=== PATIENT | female | born 1945 | race Caucasian/White ===

== ENCOUNTER 2016-11-12 10:33 | Observation (INO) | payer BC ==
--- NOTE | ~2016-11-12 | DS ---
Discharge Summary [facility] [address] [place]. [address] NAME: SHAWNA REDDY : 49 STATUS : DIS Solo PAT#: [id number] AGE: 71 ADM/REG DATE : 11/12/16 MR#: [id number] REPORT SERV DATE: 11/15/16 DICTATED BY: JR. LEDEZMA WILLIAM JOHN DATE: 11/14/16 REPORT STATUS : Draft TRANSCRIBED BY: MARGE DATE: 11/14/16 ADMISSION DATE: 11/12/2016 DISCHARGE DATE: 11/14/2016 DISCHARGE DIAGNOSES: Include: 1. Left thalamic stroke with right-sided oral, arm, and leg numbness. 2. Small patent foramen ovale. 3. Hypertension. 4. Mild hyponatremia. OPERATIONS/PROCEDURES AND TREATMENTS: Include: 1. Echocardiogram done 11/2009, which was technically difficult study with normal left ventricular size and systolic function. Ejection fraction 54%. No regional wall motion abnormalities. Mild diastolic dysfunction. Normal right ventricular size and function. Borderline quality saline bubble study with small patent foramen ovale with a few bubbles crossing the septum with Valsalva, but not at rest. 2. CT of the brain done 11/12/2016, which showed no acute infarct or hemorrhage. There was mild atrophy with white matter gliosis. 3. MRA of the neck was normal. 4. MRA of the head was normal. 5. MRI of the brain showed nonacute, nonhemorrhagic infarct of left thalamic region near the cortical spinal tract complaining right-sided weakness. DISCHARGE MEDICATIONS: Include: 1. Prilosec 20 daily. 2. Valsartan/hydrochlorothiazide 160/25 daily. 3. Pazeo ophthalmic to both eyes as needed. 4. Lipitor 80 mg daily. 5. Aspirin 325 daily. 6. Calcium carbonate 600 daily. 7. Multivitamin daily. HOSPITAL COURSE: The patient is a 71-year-old female with past history of hypertension, presented to the emergency room on 11/12 with complaint of right-sided arm, leg, and perioral numbness beginning when she was doing her morning routine about 8 a.m. She does not have chest pain, palpitations, shortness of breath, incoordination, slurred speech, headache, vision changes, incoordination or weakness. This symptoms have since resolved. For details of her admission history, physical, and presenting data, please see Dr. Garcia's dictated history and physical. The patient was admitted to the Clinical Decision Unit where she underwent MRI of the brain, MRA of the neck and head, and echocardiogram. Significant findings include: 1. Left thalamic stroke. She was placed on aspirin 325 mg daily. She had no residual deficits. There was no functional weakness. No need for therapies. The echocardiogram did show small patent foramen ovale which I discussed with the Cardiology Service. We will place her on aspirin and defer to Outpatient Neurology for Discharge Summary [address] [address] NAME: SHAWNA REDDY : 49 STATUS : DIS Solo PAT#: [id number] AGE: 71 ADM/REG DATE : 11/12/16 MR#: [id number] REPORT SERV DATE: 11/15/16 DICTATED BY: JR. LEDEZMA WILLIAM JOHN DATE: 11/14/16 REPORT STATUS : Draft TRANSCRIBED BY: MARGE DATE: 11/14/16 followup. The remainder of the patient's health problems remained stable and were not addressed. For discharge exam and laboratory, please see daily progress note. DISCHARGE DIET: Regular. ACTIVITY: As tolerated. WDIALLO/MARGE Dimas Ledezma Jr, MD / [id number] CC: Daniel Marie II, MD
--- NOTE | ~2016-11-12 | HP ---
History And Physical [place] [id number] [facility] [place]. [address] NAME: SHAWNA REDDY : 49 STATUS : ADM Solo PAT#: [id number] AGE: 71 ADM/REG DATE : 11/12/16 MR#: [id number] REPORT SERV DATE: 11/12/16 DICTATED BY: KLAUDIA LUGO DATE: 11/12/16 REPORT STATUS : Draft TRANSCRIBED BY: MODL DATE: 11/12/16 DATE OF ADMISSION: 11/12/2016 CHIEF COMPLAINT: Right oral, arm, and leg numbness. HISTORY OF PRESENT ILLNESS: The patient is a 71-year-old female. She has a past medical history significant for hypertension. She presents today with an episode beginning this morning of right mouth, arm, and leg numbness. She states, she was doing her morning routine and stretches and light weights around 08:00 to 08:15 this morning. She had the onset of symptoms as noted above. She describes it as a numbness not as a weakness not as incoordination and not as pins and needle sensation. It seemed to be the same intensity on the leg, arm, and mouth. She did not have chest pain, palpitations, shortness of breath, incoordination, slurred speech, headache, change in her vision, incoordination, or weakness. When her symptoms persisted past 10 o'clock, she presented to the emergency department. They started decreasing about that time. She has had a couple of waxing and waning since her oral numbness, which surprisingly in her mouth and her lips, but the right lower extremity is completely resolved and the right upper extremity is nearly resolved, just some residual symptoms in her hand. She has never had similar symptoms before. She is otherwise without complaints. PAST MEDICAL HISTORY: In addition to above, she had a cardiac stress test, heart catheterization approximately four years ago by Dr. Tobin, which was negative. PAST SURGICAL HISTORY: She had a breast biopsy, which was negative. Then, she had a calcium deposit removed in the scar from breast. She had also a cataract surgery. CURRENT MEDICATIONS: Diovan/hydrochlorothiazide 160/25, Prilosec 20, Pazeo ophthalmic, Centrum, Os-Stephen plus D, aspirin 81. ALLERGIES: TO SULFA AND AMOXICILLIN. FAMILY HISTORY: Father from complications of Alzheimer's. Mother has hypertension, but is living. SOCIAL HISTORY: Fenl-fgag-igj-day smoker, averages approximately three beers per night. REVIEW OF SYSTEMS: HEENT: As covered in HPI. CARDIAC: No chest pain, palpitations. PULMONARY: No shortness of breath or hyperventilation. GI: No nausea, vomiting. : No dysuria, frequency, or urgency. NEUROMUSCULOSKELETAL: No weakness, incoordination. Otherwise, 10-point review of systems negative as noted above. History And Physical [address] [address] NAME: SHAWNA REDDY : 49 STATUS : ADM Solo PAT#: [id number] AGE: 71 ADM/REG DATE : 11/12/16 MR#: [id number] REPORT SERV DATE: 11/12/16 DICTATED BY: KLAUDIA LUGO DATE: 11/12/16 REPORT STATUS : Draft TRANSCRIBED BY: MARGE DATE: 11/12/16 PHYSICAL EXAMINATION: VITAL SIGNS: BP 183/80, temp 98, pulse 88, respirations 18, sat 99%. GENERAL: She is awake, alert, oriented, in no acute distress. HEENT: Normocephalic, atraumatic. Sclerae nonicteric. NECK: Supple. HEART: Regular rate and rhythm. No significant murmurs, gallops, or rubs. No carotid bruits noted. ABDOMEN: Nontender, nondistended. EXTREMITIES: No clubbing, cyanosis, or edema. NEUROLOGICAL: Alert, oriented. No obvious cranial nerve deficits. Speech is intact. Motor strength upper extremities show symmetric fire boss strength and coordination. Lower extremity shows normal sensation to gross touch. Normal motor exam. LABORATORY DATA: Sodium 134, potassium 3.7, chloride 95, CO2 of 30, BUN and creatinine are 9 and 0.52 with a glucose of 95. White count is 5.2, H and H are 14 and 8.4, glucose 212. CT shows no acute infarct or bleed, mild atrophy. EKG, sinus rhythm. ASSESSMENT: Transient ischemic attack. PLAN: 1. Lipid profile, A1c, TSH, B12, folate, MRI, MRA, echo. 2. We will allow labile hypertension. We will hold her Diovan, hydrochlorothiazide once her blood pressure gets markedly elevated. Further recommendations pending above. TLF/MODL Klaudia Lugo M.D. / [id number]
[~2016-11-12 10:33] MED LIST: ACTIVELLA1 TA1 PO; AMB10 PO; ASAB PO; DIOVAN HCT160 MG/25 PO; PRILOSEC OTC20 MG PO
[2016-11-12 11:03] LABS: BASOPHILS 0.4 %; BASOPHILS ABSOLUTE 0.02 10/3/uL (0.0-0.16); EOSINOPHILS 1.5 %; EOSINOPHILS ABSOLUTE 0.08 10/3/uL (0.0-0.53); HEMATOCRIT 40.4 % (36.0-48.0); IMMATURE GRANULOCYTES 0.2 %; IMMATURE GRANULOCYTES ABSOLUTE 0.01 10/3/uL (0.0-0.11); LYMPHOCYTES 25.7 %; LYMPHOCYTES ABSOLUTE 1.33 10/3/uL (0.67-4.30); MEAN CORPUS HGB CONC 34.7 g/dL (32.0-36.0); MEAN CORPUSCULAR HEMOGLOB 31.1 pg (26.0-34.0); MEAN CORPUSCULAR VOLUME 89.8 fL (80-100); MEAN PLATELET VOLUME 10.2 fL (9.2-13.0); MONOCYTES 9.3 %; MONOCYTES ABSOLUTE 0.48 10/3/uL (0.21-1.20); NEUTROPHILS 62.9 %; NEUTROPHILS ABSOLUTE 3.26 10/3/uL (2.02-8.40); PLATELET COUNT 212 10/3/uL (150-400); RBC DISTRIBUTION WIDTH 12.9 % (12.0-16.0)
[2016-11-12 11:05] LABS: ER CBC TAT 0 Hrs 08 Mins; MANUAL DIFF NO %; WHITE BLOOD CELLS 5.2 10/3/uL (4.5-10.5)
[2016-11-12 11:10] LABS: PARTIAL THROMBO TIME 23.9 SEC (22.5-37.2); PROTIME (NOT ORD) 13.5 SEC (12.0-14.5)
[2016-11-12 11:16] LABS: BUN (BLOOD UREA NITROGEN) 9 MG/DL (6-23); CHLORIDE, SERUM 95 MMOL/L (96-112); CO2 (CARBON DIOXIDE) 30 MMOL/L (24-34); CREATININE 0.52 MG/DL (0.55-1.02); GFR AFRICAN AMERICAN 113 ML/MIN (>=60); GFR NON AFRICAN AMERICAN 97 ML/MIN (>=60); GLUCOSE, SERUM 95 MG/DL (60-99); POTASSIUM, SERUM 3.7 MMOL/L (3.5-5.3); SODIUM, SERUM 134 MMOL/L (135-148)
[2016-11-12] MEDS ORDERED: DIOVAN HCT160 MG/25 PO (13:00)
[2016-11-12] MEDS ORDERED: PRILO PO (13:00)
[2016-11-12] MEDS ORDERED: CENTRUM PO (13:01)
[2016-11-12] MEDS ORDERED: ASAB PO (13:01)
[2016-11-12] MEDS ORDERED: OS500+D PO (13:01)
[2016-11-12] MEDS ORDERED: PAZEO2.5 ML OPH (13:04)
[2016-11-12 18:20] LABS: CHOL/HDL RATIO(NOT ORDER) 1.7 (0-5); CHOLESTEROL 218 MG/DL (< 200); HDL CHOLESTEROL 125 MG/DL (> 49); LDL CHOLESTEROL 80 MG/DL (< 130); NON-HDL CHOLESTEROL 93 MG/DL (< 160); TRIGLYCERIDE 69 MG/DL (< 150)
[2016-11-12 18:26] LABS: FOLATE 14.5 NG/ML (>5.2)
[2016-11-14] MEDS ORDERED: LIPITOR80 MG PO (16:16)
== END 2016-11-14 16:30 | disposition home or self-care (01) ==
LOC: ER 10:33 → CDU1 14:07
PROVIDERS: Emergency Medicine
DX: I63.9 Cerebral infarction, unspecified (principal); G45.9 Transient cerebral ischemic attack, unspecified; I10 Essential (primary) hypertension; E87.1 Hypo-osmolality and hyponatremia; Z88.2 Allergy status to sulfonamides; Z88.1 Allergy status to other antibiotic agents; Z79.82 Long term (current) use of aspirin
CPT/HCPCS: 70450; 70544; 70547; 70551; 80048; 80061; 82607; 82746; 83036; 85025; 85610; 85730; 93005; 93306; 96372; 96374; 99285; A9270-GY; G0378; J0360